=== PATIENT | male | born 1960 | race Caucasian/White ===

== ENCOUNTER → 2021-02-08 | Outpatient (CLI) | payer OTHER ==
[~2021-02-08] MED LIST: HEPARIN SO5000 UNIT2 SUBQ; LOPRESSOR50 PO; MAGOX 400400 MG PO; METFORMIN HCL500 MG PO; MIRALAX17 GM PO; MULTIVITAMINS PO; ONDANSETRON HCL4 M2 PO; [UNRECOGNIZED DRUG - CODE] IVPB
== END ==
LOC: HYPER 07:52
PROVIDERS: ATTEND Emergency Medicine
DX: E11.622 Type 2 diabetes mellitus with other skin ulcer (principal); L89.324 Pressure ulcer of left buttock, stage 4; L98.496 Non-pressure chronic ulcer of skin of other sites with bone involvement without evidence of necrosis; E66.9 Obesity, unspecified; G82.20 Paraplegia, unspecified; K59.2 Neurogenic bowel, not elsewhere classified; N31.8 Other neuromuscular dysfunction of bladder; Z87.891 Personal history of nicotine dependence; Z93.3 Colostomy status; Z79.82 Long term (current) use of aspirin; Z79.84 Long term (current) use of oral hypoglycemic drugs; Z68.33 Body mass index [BMI] 33.0-33.9, adult

== ENCOUNTER → 2021-02-21 | Outpatient (CLI) | payer OTHER | LOC: MRI 08:28 | PROVIDERS: ATTEND Emergency Medicine | DX: L89.324 Pressure ulcer of left buttock, stage 4 (principal); M43.28 Fusion of spine, sacral and sacrococcygeal region; M86.8X8 Other osteomyelitis, other site ==

== ENCOUNTER → 2021-03-01 | Outpatient (CLI) | payer OTHER | LOC: HYPER 07:56 | PROVIDERS: ATTEND Emergency Medicine | DX: E11.622 Type 2 diabetes mellitus with other skin ulcer (principal); L89.324 Pressure ulcer of left buttock, stage 4; L98.496 Non-pressure chronic ulcer of skin of other sites with bone involvement without evidence of necrosis; E66.9 Obesity, unspecified; G82.20 Paraplegia, unspecified; K59.2 Neurogenic bowel, not elsewhere classified; N31.8 Other neuromuscular dysfunction of bladder; Z87.891 Personal history of nicotine dependence; Z93.3 Colostomy status; Z79.82 Long term (current) use of aspirin; Z79.84 Long term (current) use of oral hypoglycemic drugs; Z68.33 Body mass index [BMI] 33.0-33.9, adult ==

== ENCOUNTER → 2021-03-15 | Outpatient (CLI) | payer OTHER | LOC: HYPER 08:06 | PROVIDERS: ATTEND Emergency Medicine | DX: E11.622 Type 2 diabetes mellitus with other skin ulcer (principal); L89.324 Pressure ulcer of left buttock, stage 4; L98.496 Non-pressure chronic ulcer of skin of other sites with bone involvement without evidence of necrosis; E66.9 Obesity, unspecified; G82.20 Paraplegia, unspecified; K59.2 Neurogenic bowel, not elsewhere classified; N31.8 Other neuromuscular dysfunction of bladder; Z87.891 Personal history of nicotine dependence; Z93.3 Colostomy status; Z79.82 Long term (current) use of aspirin; Z79.84 Long term (current) use of oral hypoglycemic drugs; Z68.33 Body mass index [BMI] 33.0-33.9, adult ==

== ENCOUNTER → 2021-03-22 | Outpatient (CLI) | payer OTHER | LOC: HYPER 08:08 | PROVIDERS: ATTEND Emergency Medicine | DX: E11.622 Type 2 diabetes mellitus with other skin ulcer (principal); L89.324 Pressure ulcer of left buttock, stage 4; L98.416 Non-pressure chronic ulcer of buttock with bone involvement without evidence of necrosis; G82.20 Paraplegia, unspecified; K59.2 Neurogenic bowel, not elsewhere classified; N31.8 Other neuromuscular dysfunction of bladder; E66.9 Obesity, unspecified; F17.290 Nicotine dependence, other tobacco product, uncomplicated; Z68.33 Body mass index [BMI] 33.0-33.9, adult; Z79.82 Long term (current) use of aspirin; Z79.84 Long term (current) use of oral hypoglycemic drugs; Z93.3 Colostomy status; Z90.81 Acquired absence of spleen; Z98.1 Arthrodesis status ==

== ENCOUNTER → 2021-04-06 | Outpatient (CLI) | payer OTHER | LOC: HYPER 07:45 | PROVIDERS: ATTEND Emergency Medicine | DX: E11.622 Type 2 diabetes mellitus with other skin ulcer (principal); L89.324 Pressure ulcer of left buttock, stage 4; L98.416 Non-pressure chronic ulcer of buttock with bone involvement without evidence of necrosis; G82.20 Paraplegia, unspecified; K59.2 Neurogenic bowel, not elsewhere classified; N31.8 Other neuromuscular dysfunction of bladder; E66.9 Obesity, unspecified; F17.290 Nicotine dependence, other tobacco product, uncomplicated; Z68.33 Body mass index [BMI] 33.0-33.9, adult; Z79.82 Long term (current) use of aspirin; Z79.84 Long term (current) use of oral hypoglycemic drugs; Z93.3 Colostomy status; Z90.81 Acquired absence of spleen; Z98.1 Arthrodesis status ==

== ENCOUNTER → 2021-05-03 | Outpatient (CLI) | payer OTHER | LOC: HYPER 10:54 | PROVIDERS: ATTEND Emergency Medicine | DX: E11.622 Type 2 diabetes mellitus with other skin ulcer (principal); L89.324 Pressure ulcer of left buttock, stage 4; L98.412 Non-pressure chronic ulcer of buttock with fat layer exposed; K59.2 Neurogenic bowel, not elsewhere classified; N31.8 Other neuromuscular dysfunction of bladder; G82.20 Paraplegia, unspecified; E66.9 Obesity, unspecified; F17.290 Nicotine dependence, other tobacco product, uncomplicated; Z79.84 Long term (current) use of oral hypoglycemic drugs; Z68.33 Body mass index [BMI] 33.0-33.9, adult; Z79.82 Long term (current) use of aspirin; Z90.81 Acquired absence of spleen; Z98.890 Other specified postprocedural states; Z93.3 Colostomy status ==

== ENCOUNTER → 2021-06-01 | Outpatient (CLI) | payer OTHER | LOC: HYPER 08:49 | PROVIDERS: ATTEND Emergency Medicine | DX: E11.622 Type 2 diabetes mellitus with other skin ulcer (principal); L89.324 Pressure ulcer of left buttock, stage 4; L98.416 Non-pressure chronic ulcer of buttock with bone involvement without evidence of necrosis; G82.20 Paraplegia, unspecified; K59.2 Neurogenic bowel, not elsewhere classified; N31.8 Other neuromuscular dysfunction of bladder; E66.9 Obesity, unspecified; F17.290 Nicotine dependence, other tobacco product, uncomplicated; Z79.82 Long term (current) use of aspirin; Z79.84 Long term (current) use of oral hypoglycemic drugs; Z68.33 Body mass index [BMI] 33.0-33.9, adult; Z93.3 Colostomy status; Z90.81 Acquired absence of spleen; Z98.890 Other specified postprocedural states; Z98.1 Arthrodesis status ==

== ENCOUNTER → 2021-06-29 | Outpatient (CLI) | payer OTHER | LOC: HYPER 08:18 | PROVIDERS: ATTEND Emergency Medicine | DX: E11.622 Type 2 diabetes mellitus with other skin ulcer (principal); L89.324 Pressure ulcer of left buttock, stage 4; L98.416 Non-pressure chronic ulcer of buttock with bone involvement without evidence of necrosis; G82.20 Paraplegia, unspecified; K59.2 Neurogenic bowel, not elsewhere classified; N31.8 Other neuromuscular dysfunction of bladder; E66.9 Obesity, unspecified; F17.290 Nicotine dependence, other tobacco product, uncomplicated; Z79.82 Long term (current) use of aspirin; Z79.84 Long term (current) use of oral hypoglycemic drugs; Z68.33 Body mass index [BMI] 33.0-33.9, adult; Z93.3 Colostomy status; Z90.81 Acquired absence of spleen; Z98.1 Arthrodesis status ==

== ENCOUNTER → 2021-08-03 | Outpatient (CLI) | payer OTHER | LOC: HYPER 10:52 | PROVIDERS: ATTEND Emergency Medicine | DX: E11.622 Type 2 diabetes mellitus with other skin ulcer (principal); L89.324 Pressure ulcer of left buttock, stage 4; L98.416 Non-pressure chronic ulcer of buttock with bone involvement without evidence of necrosis; L89.213 Pressure ulcer of right hip, stage 3; L98.411 Non-pressure chronic ulcer of buttock limited to breakdown of skin; L84 Corns and callosities; G82.20 Paraplegia, unspecified; K59.2 Neurogenic bowel, not elsewhere classified; N31.8 Other neuromuscular dysfunction of bladder; E66.9 Obesity, unspecified; F17.290 Nicotine dependence, other tobacco product, uncomplicated; Z79.82 Long term (current) use of aspirin; Z79.84 Long term (current) use of oral hypoglycemic drugs; Z68.33 Body mass index [BMI] 33.0-33.9, adult; Z93.3 Colostomy status; Z90.81 Acquired absence of spleen; Z98.1 Arthrodesis status ==

== ENCOUNTER → 2021-08-31 | Outpatient (CLI) | payer OTHER | LOC: HYPER 09:35 | PROVIDERS: ATTEND Emergency Medicine | DX: E11.622 Type 2 diabetes mellitus with other skin ulcer (principal); L89.324 Pressure ulcer of left buttock, stage 4; L89.314 Pressure ulcer of right buttock, stage 4; L98.411 Non-pressure chronic ulcer of buttock limited to breakdown of skin; K59.2 Neurogenic bowel, not elsewhere classified; N31.8 Other neuromuscular dysfunction of bladder; G82.20 Paraplegia, unspecified; E66.9 Obesity, unspecified; F17.290 Nicotine dependence, other tobacco product, uncomplicated; Z68.33 Body mass index [BMI] 33.0-33.9, adult; Z79.82 Long term (current) use of aspirin; Z79.84 Long term (current) use of oral hypoglycemic drugs; Z93.3 Colostomy status ==

== ENCOUNTER → 2021-09-27 | Outpatient (CLI) | payer OTHER | LOC: HYPER 12:41 | PROVIDERS: ATTEND Emergency Medicine | DX: E11.622 Type 2 diabetes mellitus with other skin ulcer (principal); L89.324 Pressure ulcer of left buttock, stage 4; L89.314 Pressure ulcer of right buttock, stage 4; L98.415 Non-pressure chronic ulcer of buttock with muscle involvement without evidence of necrosis; G82.20 Paraplegia, unspecified; K59.2 Neurogenic bowel, not elsewhere classified; N31.8 Other neuromuscular dysfunction of bladder; E66.9 Obesity, unspecified; Z68.33 Body mass index [BMI] 33.0-33.9, adult; F17.290 Nicotine dependence, other tobacco product, uncomplicated; Z79.82 Long term (current) use of aspirin; Z79.84 Long term (current) use of oral hypoglycemic drugs; Z93.3 Colostomy status ==